=== PATIENT | male | born 1930 | race Caucasian/White ===

== ENCOUNTER 2017-06-07 09:42 | Emergency (ER) | payer OTHER ==
[~2017-06-07] VITALS: Ht 172.7 cm; Wt 80.0 kg
[~2017-06-07 09:42] MED LIST: ALBU18HF INHALATION; GLIP-95; HYDR-3498 PO; METF500T4
[2017-06-07 09:51] VITALS: Ht 172.7 cm; Wt 80.0 kg
[2017-06-07 10:58] LABS: ALBUMIN 3.9 g/dl (3.3-4.9); ALBUMIN/GLOBULIN RATIO 1.5; BILIRUBIN,INDIRECT 0.2 mg/dl (0-1.1); BILIRUBIN,TOTAL 0.2 mg/dl (0.2-1.3); CALCIUM 8.9 mg/dl (8.4-10.2); CREATININE 1.38 mg/dl (0.61-1.24); TOTAL PROTEIN 6.5 g/dl (6.1-8.1)
[2017-06-07] MEDS ORDERED: NA POLYST SULFON 15 GM/60 ML BTL PO STA (11:32)
[2017-06-07] MEDS ORDERED: NA BICARBONATE 8.4% 50 ML SYG IV STA (11:32)
[2017-06-07] MEDS ORDERED: INSULIN REGULAR, HUMAN 100 UNIT/1 ML 3ML VIAL IV STA (11:32)
[2017-06-07] MEDS ORDERED: SODI15OR8 PO (11:38)
--- NOTE | 2017-06-07 11:40 | ERD ---
ER Documentation Chief Complaint Date/Time DATE: 06/07/17 TIME: 11:39 Chief Complaint Patient sent from MD for evaluation abnormal labs HPI This is an 86-year-old male who is sent here by his doctor for abnormal labs. The patient had potassium is 6.3 and creatinine 2.0. Patient is completely asymptomatic and is here because his doctor sent him here for a redraw of his potassium and renal function. He has no other symptoms of complaints of chest pain headache shortness of breath dizziness weakness ROS All systems reviewed and are negative except as per history of present illness. Medications Home Meds Active Scripts Sodium Polystyrene Sulfonate* (Kayexalate*) 15 Gm/60 Ml Susp, 30 GM PO each day for 5 Days, ML Prov:MARTHA FARMER DO 06/07/17 Albuterol Sulfate* (Ventolin HFA*) 18 Gm Hfa.aer.ad, 2 PUFF INHALATION Q6H, #1 INHALER 0 Refills Prov:BEKAH BROOKS PA-C 03/06/16 Hydrocodone Bit-Acetaminophen* ([place]*) 5-325 Mg Tab, 1 TAB PO Q8 Y for PAIN, # 10 TAB 0 Refills Prov:BEKAH BROOKS PA-C 03/06/16 Reported Medications Glipizide* (Glipizide*) 10 Mg Tablet 10/12/09 Metformin Hcl* (Metformin Hcl*) 500 Mg Tablet 10/12/09 Allergies Allergies: Coded Allergies: No Known Allergies (Verified Allergy, Mild, 10/12/09) PMhx/Soc History of Surgery: No Anesthesia Reaction: No Hx Neurological Disorder: No Hx Respiratory Disorders: No Hx Cardiac Disorders: No Hx Psychiatric Problems: No Hx Miscellaneous Medical Probl: No Hx Alcohol Use: Yes Hx Substance Use: No Hx Tobacco Use: No Smoking Status: Never smoker FmHx Family History: No coronary disease Physical Exam Vitals Vital Signs Date Time Temp Pulse Resp B/P Pulse Ox O2 Delivery O2 Flow Rate FiO2 06/07/17 09:51 98.3 89 20 146/95 99 Physical Exam Const: Well-developed, well-nourished Head: Atraumatic, normocephalic Eyes: Normal Conjunctiva, PERRLA, EOMI, normal sclera, no nystagmus ENT: Normal External Ears, Nose and Mouth, moist mucus membranes. Neck: Full range of motion. No meningismus, no lymphadenopathy. Resp: Clear to auscultation bilaterally, no wheezing, rhonchi, rales Cardio: Regular rate and rhythm, no murmurs, S1 S2 present Abd: Soft, non tender x 4, non distended. Normal bowel sounds, no guarding or rebound, no pulsitile abdominal masses or bruits Skin: No petechiae or rashes, no ecchymosis , no maculopapular rash Back: No midline or flank tenderness Ext: No cyanosis, or edema, FROM x 4, normal inspection, neurovascularly intact x 4 Neur: Awake and alert, STR 5/5 x 4, sensation intact x 4, no focal findings, cerebellum intact Psych: Normal Mood and Affect Result Diagram: 06/07/17 1028 Results 24 hrs Laboratory Tests Test 06/07/17 10:28 Sodium Level 138mmol/L Potassium Level 6.0mmol/L Chloride Level 100mmol/L Carbon Dioxide Level 24mmol/L Anion Gap 20 Blood Urea Nitrogen 33mg/dl Creatinine 1.38mg/dl Glucose Level 304mg/dl Calcium Level 8.9mg/dl Total Bilirubin 0.2mg/dl Direct Bilirubin 0.00mg/dl Indirect Bilirubin 0.2mg/dl Aspartate Amino Transf (AST/SGOT) 13IU/L Alanine Aminotransferase (ALT/SGPT) 27IU/L Alkaline Phosphatase 53IU/L Total Protein 6.5g/dl Albumin 3.9g/dl Globulin 2.60g/dl Albumin/Globulin Ratio 1.50 Current Medications Medications (Trade) Dose Ordered Sig/Norma Route PRN Reason Start Time Stop Time Status Last Admin Dose Admin Sodium Polystyrene Sulfonate (Kayexalate) 30 gm ONCE STAT PO 06/07/17 11:32 06/07/17 11:37 DC Sodium Bicarbonate (Na Bicarb 8.4% Syg) 50 ml ONCE STAT IV 06/07/17 11:32 06/07/17 11:37 DC Insulin Human Regular (Humulin R) 10 unit ONCE STAT IV 06/07/17 11:32 06/07/17 11:37 DC Dextrose (D50w Syringe) ONCE PRN IV POC BLOOD GLUCOSE <250 MG/DL 06/07/17 12:00 Procedures/MDM The patient will be given the hyperkalemic cocktail here. Including Kayexalate. The patient is adamant he will not stay in the hospital for admission. He says this is because he has a sick at home.. I did tell him that hyperkalemia can result in cardiac arrest and . He said he knows and will not stay in the hospital because of his . I will discharge him home with 5 days of Kayexalate 30 g p.o. daily and told him to see his doctor on Saturday for redraw of potassium Departure Diagnosis: Primary Impression: Hyperkalemia Condition: Stable Patient Instructions: Hyperkalemia MATRHA FARMER DO Jun 07, 2017 11:40
[2017-06-07] MEDS ORDERED: DEXTROSE 50% 50 ML SYRINGE IV PRN (12:00)
[2017-06-07 12:34] VITALS: BP 126/71; PULSE 81; TEMP 98
== END 2017-06-07 12:35 | disposition home or self-care (01) ==
LOC: E/R 09:42
DX: E87.5 Hyperkalemia (principal); Z79.84 Long term (current) use of oral hypoglycemic drugs
CPT/HCPCS: 36415; 80053; 82962; 96374; 96375; 99284; J1815

== ENCOUNTER 2019-01-06 13:39 | Emergency (ER) | payer OTHER ==
[~2019-01-06] VITALS: Ht 170.2 cm; Wt 70.3 kg
[~2019-01-06 13:39] MED LIST changes: -GLIP-95; +GLIP10TA14; +METF500T24; -METF500T4; +SODI15OR8 PO
[2019-01-06 13:45] VITALS: Ht 170.2 cm; Wt 70.3 kg
--- NOTE | 2019-01-06 13:57 | ERD ---
ER Documentation Chief Complaint Chief Complaint Sent by PMD for lab work/evaluation HPI The patient is a 88-year-old male, presenting to the ER because of abnormal lab from his doctor Dr Owens's office of high potassium of 6.1, high BUN 39, high creatinine 1.6 from the lab that he had yesterday, UA show positive nitrite. He denies fever, chills, neck pain, chest pain, abdominal pain, vomiting, complains of dysuria. He does not smoke or drink Past medical history: Diabetes mellitus, metastatic prostate cancer, dementia, anemia Past surgical history: None ROS All systems reviewed and are negative except as per history of present illness. Medications Home Meds Active Scripts Cephalexin* (Keflex*) 500 Mg Capsule, 500 MG PO BID, #20 CAP Prov:LINDA LAWTON MD 01/06/19 Reported Medications Donepezil* (Donepezil*) 5 Mg Tablet, 5 MG PO DAILY, #30 TAB 01/06/19 Simvastatin* (Zocor*) 10 Mg Tablet, 10 MG PO QHS, #30 TAB 01/06/19 Pioglitazone Hcl* (Actos*) 30 Mg Tablet, 30 MG PO DAILY, #30 TAB 01/06/19 Lisinopril* (Lisinopril*) 20 Mg Tablet, 20 MG PO DAILY, #30 TAB 01/06/19 Glimepiride* (Glimepiride*) 4 Mg Tablet, 4 MG PO WITH BREAKFAST DINNE, TAB 01/06/19 Discontinued Reported Medications Glipizide* (Glipizide*) 10 Mg Tablet 10/12/09 Metformin Hcl* (Metformin Hcl*) 500 Mg Tablet 10/12/09 Discontinued Scripts Sodium Polystyrene Sulfonate* (Kayexalate*) 15 Gm/60 Ml Susp, 30 GM PO each day for 5 Days, ML Prov:MARTHA FARMER DO 06/07/17 Albuterol Sulfate* (Ventolin HFA*) 18 Gm Hfa.aer.ad, 2 PUFF INHALATION Q6H, #1 INHALER 0 Refills Prov:BEKAH BROOKS PA-C 03/06/16 Hydrocodone Bit-Acetaminophen* ([place]*) 5-325 Mg Tab, 1 TAB PO Q8 PRN for PAIN, #10 TAB 0 Refills Prov:BEKAH BROKOS PA-C 03/06/16 Allergies Allergies: Coded Allergies: No Known Allergies (Verified Allergy, Mild, 01/06/19) PMhx/Soc History of Surgery: No Anesthesia Reaction: No Hx Neurological Disorder: No Hx Respiratory Disorders: No Hx Cardiac Disorders: No Hx Psychiatric Problems: No Hx Miscellaneous Medical Probl: No Hx Alcohol Use: Yes Hx Substance Use: No Hx Tobacco Use: No Physical Exam Vitals Vital Signs Date Temp Pulse Resp B/P (MAP) Pulse Ox O2 O2 Flow FiO2 Time Delivery Rate 01/06/19 98.8 88 19 132/66 97 Room Air 16:35 (88) 01/06/19 Nasal 2 14:21 Cannula 01/06/19 98.2 95 18 135/63 97 13:45 (87) Physical Exam Const: No acute distress. Head: Atraumatic. Eyes: Normal Conjunctiva. ENT: Normal External Ears, Nose and Mouth. Neck: Full range of motion. No meningismus. Resp: Clear to auscultation bilaterally. Cardio: Regular rate and rhythm. Abd: Soft, non distended, normal bowel sounds, non tender. Skin: No petechiae or rashes. Back: No midline or flank tenderness. Ext: No cyanosis, or edema. Neur: Awake and alert. No focal deficit Psych: Agitated. Result Diagram: 01/06/19 1417 01/06/19 1417 Results 24 hrs Laboratory Tests Test 01/06/19 14:17 01/06/19 14:19 01/06/19 14:39 01/06/19 14:41 White Blood Count 3.9 10^3/ul Red Blood Count 2.48 10^6/ul Hemoglobin 7.4 g/dl Hematocrit 23.3 % Mean Corpuscular 94.0 fl Volume Mean Corpuscular 29.8 pg Hemoglobin Mean Corpuscular 31.8 g/dl Hemoglobin Concent Red Cell 14.3 % Distribution Width Platelet Count 101 10^3/UL Mean Platelet 11.2 fl Volume Immature 0.500 % Granulocytes % Neutrophils % 54.7 % Lymphocytes % 29.8 % Monocytes % 13.4 % Eosinophils % 1.3 % Basophils % 0.3 % Nucleated Red 0.0 /100WBC Blood Cells % Immature 0.020 10^3/ul Granulocytes # Neutrophils # 2.1 10^3/ul Lymphocytes # 1.2 10^3/ul Monocytes # 0.5 10^3/ul Eosinophils # 0.1 10^3/ul Basophils # 0.0 10^3/ul Nucleated Red 0.0 10^3/ul Blood Cells # Prothrombin Time 13.8 Sec Prothrombin Time 1.1 Ratio INR International 1.05 Normalized Ratio Activated 30.[address] Time Sodium Level 135 mmol/L Potassium Level 5.2 mmol/L Chloride Level 98 mmol/L Carbon Dioxide 24 mmol/L Level Anion Gap 13 Blood Urea 41 mg/dl Nitrogen Creatinine 1.80 mg/dl Est Glomerular mL/min Filtrat Rate mL/min Glucose Level 272 mg/dl Calcium Level 9.0 mg/dl Total Bilirubin 0.4 mg/dl Direct Bilirubin 0.00 mg/dl Indirect Bilirubin 0.4 mg/dl Aspartate Amino 19 IU/L Transf (AST/SGOT) Alanine 11 IU/L Aminotransferase ( ALT/SGPT) Alkaline 541 IU/L Phosphatase Troponin I < 0.012 ng/ml Total Protein 6.6 g/dl Albumin 4.1 g/dl Globulin 2.50 g/dl Albumin/Globulin 1.64 Ratio POC Venous Lactate 1.6 mmol/L Bedside Urine pH 5.0 (LAB) Bedside Urine Trace Protein (LAB) Bedside Urine Negative Glucose (UA) Bedside Urine Negative Ketones (LAB) Bedside Urine Trace-lysed Blood Bedside Urine Positive Nitrite (LAB) Bedside Urine Negative Leukocyte Esterase (L Bedside Glucose 271 mg/dL Test 01/06/19 15:35 Urine Color ELIZABET Urine Clarity SLIGHTLY CLOUDY Urine pH 5.0 Urine Specific 1.016 [place] Urine Ketones NEGATIVE mg/dL Urine Nitrite NEGATIVE mg/dL Urine Bilirubin NEGATIVE mg/dL Urine Urobilinogen NEGATIVE mg/dL Urine Leukocyte NEGATIVE Isra/ul Esterase Urine Microscopic 4 /HPF RBC Urine Microscopic 1 /HPF WBC Urine Bacteria FEW /HPF Urine Mucus FEW /HPF Urine Hemoglobin NEGATIVE mg/dL Urine Glucose NEGATIVE mg/dL Urine Total NEGATIVE mg/dl Protein Current Medications Medications Dose Sig/Norma Start Time Status Last (Trade) Ordered Route PRN Stop Time Admin Dose Reason Admin Piperacillin 50 ml @ ONCE ONCE 01/06/19 DC 01/06/19 Sod/ 100 mls/hr IVPB 16:30 16:16 Tazobactam 01/06/19 16:59 Sod Procedures/MDM [place] [id number] Radiology Main Line: [phone] DIAGNOSTIC IMAGING REPORT Patient: RONALD NAPIER : 1930 Age: 88 Sex: M MR #: [id number] DOS: 01/06/19 1401 Ordering MD: LINDA LAWTON MD Location: E/R Room/Bed: PROCEDURE: XR Chest. CLINICAL INDICATION: chest pain TECHNIQUE: Single frontal view of the chest was obtained COMPARISON: CR CHEST 03/06/2016 FINDINGS: The heart and mediastinum are within normal limits. The lungs are clear. There is no pleural effusion or pneumothorax. RPTAT: AA IMPRESSION: No acute disease. .Dick Núñez MD, Date Time Electronically viewed and signed by .Dick Núñez MD, MD on 01/06/2019 14:29 .S/ CC: LINDA LAWTON MD [phone] EKG: Read by emergency physician Rate/Rhythm: Normal Sinus Rhythm 81beats/min QRS, ST, T-waves: No ST elevation, no T inversion Impression: Normal EKG MEDICAL MAKING DECISION: The patient is a 88-year-old male, presenting with acute cystitis, acute on chronic kidney disease, pancytopenia, acute hyperkalemia. He was treated with Zosyn IV for acute cystitis. I have admitted the patient however he declined to be admitted The patient signed out AGAINST MEDICAL ADVICE. Risks, benefits, alternatives were explained to the patient. Risks include but not limited to and permanent disability Consultation: I discussed the patient with his doctor Dr. Maldonado, who was made aware of the lab, the treatment and the patient signing out AGAINST MEDICAL ADVICE The differential diagnoses considered include but are not limited to UTI, pneumonia, pyelonephritis, sepsis, GI bleed Departure Diagnosis: Primary Impression: UTI (urinary tract infection) Additional Impressions: Acute kidney injury superimposed on chronic kidney disease Pancytopenia Hyperkalemia Abnormal LFTs Condition: Serious Comments He was given prescription for Keflex. he is asked to see Dr Owens immediately The patient signed out AGAINST MEDICAL ADVICE. Risks, benefits, alternatives were explained to the patient. Risks include but not limited to and permanent disability Disclaimer: Inadvertent spelling and grammatical errors are likely due to EHR/dictation software use and do not reflect on the overall quality of patient care. Also, please note that the electronic time recorded on this note does not necessarily reflect the actual time of the patient encounter. LINDA LAWTON MD Jan 06, 2019 13:57
[2019-01-06] MEDS ORDERED: SIMV10TA PO (15:28)
[2019-01-06] MEDS ORDERED: PIOG30TA12 PO (15:28)
[2019-01-06] MEDS ORDERED: GLIM4TAB PO (15:28)
[2019-01-06] MEDS ORDERED: LISI-471 PO (15:28)
[2019-01-06] MEDS ORDERED: DONE5TAB7 PO (15:29)
[2019-01-06] MEDS ORDERED: CEPH-443 PO (16:18)
[2019-01-06] MEDS ORDERED: PIPER-TAZO 2.25 GM (PMX) 50 ML IVPB ONE (16:30)
[2019-01-06 16:35] VITALS: BP 132/66; PULSE 88; RESP 19
== END 2019-01-06 16:37 | disposition left against medical advice (07) ==
LOC: E/R 13:39
DX: N39.0 Urinary tract infection, site not specified (principal); E11.9 Type 2 diabetes mellitus without complications; D61.818 Other pancytopenia; E87.5 Hyperkalemia; N17.9 Acute kidney failure, unspecified
CPT/HCPCS: 36415; 71045; 80053; 81001; 82962; 83605; 84484; 85025; 85610; 85730; 87040; 87086; 93005; 96374; 99285; J2543; 81003

== ENCOUNTER 2019-01-24 08:33 | Observation (INO) | payer OTHER ==
[~2019-01-24] VITALS: Ht 167.6 cm; Wt 70.0 kg
[~2019-01-24 08:33] MED LIST changes: -ALBU18HF INHALATION; +CEPH-443 PO; +DONE5TAB7 PO; +GLIM4TAB PO; -GLIP10TA14; -HYDR-3498 PO; +LISI-471 PO; -METF500T24; +PIOG30TA12 PO; +SIMV10TA PO; -SODI15OR8 PO
[2019-01-24] MEDS ORDERED: SOD CHLORIDE 0.9% 1,000 ML IV STA ×2 (08:55→10:05)
[2019-01-24] MEDS ORDERED: GLIM4TAB PO (10:36)
[2019-01-24] MEDS ORDERED: ZOLP10TA5 PO (10:36)
[2019-01-24] MEDS ORDERED: HYDR-4011 PO (10:37)
[2019-01-24] MEDS ORDERED: ONDANSETRON 4 MG INJ IV PRN (12:00)
[2019-01-24] MEDS ORDERED: ACETAMINOPHEN 325 MG TAB PO PRN (12:00)
[2019-01-24] MEDS ORDERED: IODIXANOL LOCM 100 ML BTL ONE (12:10)
[2019-01-24] MEDS ORDERED: SOD CHLORIDE 0.9% 100 ML ONE (12:11)
[2019-01-24] MEDS ORDERED: ZOLPIDEM 5 MG TAB PO PRN (12:30)
--- NOTE | 2019-01-24 12:56 | ERD ---
ER Documentation Chief Complaint Chief Complaint pt is adrien family sent over for blood transfusion hgb 7.1 HPI This is an 88-year-old male with a past medical history of metastatic prostate carcinoma with a PSA level of around 400. The patient community service specialist oncologist is Dr. Néstor Girard. The patient is on Lupron. The patient has known history of chronic renal failure not on dialysis. The patient's shift nurse manager is Dr. Rosa Jose. He was recently seen and evaluated by Dr. Rosa Jose for an elevated creatinine. He was instructed to stop lisinopril. During that visit he also complained of lightheadedness and dizziness and generalized weakness. Request laboratory work indicated the patient was anemic with a hemoglobin of 7.1. The patient has also been having frequent falls according to his . Roughly 1 week ago the patient had a ground-level mechanical fall landing on his left buttocks. He did not hit his head or lose consciousness. Since that time he has been complaining of severe pain in the left buttocks and lower abdomen. He has had no hemoptysis no hematemesis no melanotic stools. He denies any short ness of breath at rest or exertion. He denies any chest pain. He has no changes in vision. ROS All systems reviewed and are negative except as per history of present illness. Medications Home Meds Reported Medications Zolpidem Tartrate* (Zolpidem Tartrate*) 10 Mg Tablet, 10 MG PO QHS PRN for INSOMNIA, #30 TAB 01/24/19 Glimepiride* (Glimepiride*) 4 Mg Tablet, 4 MG PO WITH BREAKFAST DINNE, TAB 01/24/19 Discontinued Reported Medications Hydrocodone/Acetaminophen ([place] 5-325 Tablet) 1 Each Tablet, 1 EACH PO Q6H, TAB 01/24/19 Donepezil* (Donepezil*) 5 Mg Tablet, 5 MG PO DAILY, #30 TAB 01/06/19 Simvastatin* (Zocor*) 10 Mg Tablet, 10 MG PO QHS, #30 TAB 01/06/19 Pioglitazone Hcl* (Actos*) 30 Mg Tablet, 30 MG PO DAILY, #30 TAB 01/06/19 Lisinopril* (Lisinopril*) 20 Mg Tablet, 20 MG PO DAILY, #30 TAB 01/06/19 Glimepiride* (Glimepiride*) 4 Mg Tablet, 4 MG PO WITH BREAKFAST DINNE, TAB 01/06/19 Discontinued Scripts Cephalexin* (Keflex*) 500 Mg Capsule, 500 MG PO BID, #20 CAP Prov:LINDA LAWTON MD 01/06/19 Allergies Allergies: Coded Allergies: No Known Allergies (Verified Allergy, Mild, 01/24/19) PMhx/Soc History of Surgery: No Anesthesia Reaction: No Hx Neurological Disorder: No Hx Respiratory Disorders: No Hx Cardiac Disorders: Yes (diabetes mellitus) Hx Psychiatric Problems: No Hx Miscellaneous Medical Probl: Yes (urinary tract infections; kidney problems) Hx Alcohol Use: Yes Hx Substance Use: No Hx Tobacco Use: No Smoking Status: Never smoker Physical Exam Vitals Vital Signs Date Temp Pulse Resp B/P (MAP) Pulse Ox O2 O2 Flow FiO2 Time Delivery Rate 01/24/19 90 18 125/59 100 Room Air 11:26 (81) 01/24/19 98.3 94 18 128/61 94 08:35 (83) Physical Exam Constitutional:Well-developed. Well-nourished. HEENT:Normocephalic. Atraumatic.Pupils were equal round reactive to light. Moist mucous membranes.No tonsillar exudates. Conjunctival pallor Neck: No nuchal rigidity. No lymphadenopathy. No posterior cervical spine tenderness or step-offs. Respiratory: Not using accessory muscles of respiration.Lungs were clear to auscultation bilaterally. No rhonchi. No rales. No wheezing. Cardiovascular: Regular rate regular rhythm.No murmurs. No rubs were appreciated.S1, S2 normal. Distal pulses are palpable 2+ bilaterally. GI: Abdomen was soft. Nontender. Non Distended. No pulsatile abdominal masses or bruits. No rebound. No guarding. Bowel sounds were present and normal. Muscle skeletal: Full range of motion of both the upper and lower extremities bilaterally.Normal muscle tone.No assymetrical calf tenderness or swelling. Tenderness of the left anterior superior iliac spine but lower extremities are of equal length and symmetrical no internal/external rotation. RECTAL: Normal sphincter tone. No gross blood. Fecal occult blood test negative. Skin: Diffuse pallor. No petechia, no purpura. No lesions on the palms or the soles of the feet. No maculopapular rash. Significant ecchymosis over the left flank and left buttocks. NEURO: Patient was alert, awake, orientated x3.No facial droop. Gait observed but patient ambulates with a slow shuffling gait.Speech had regular rate and rhy thm. No focal neurological deficits. Result Diagram: 01/24/1930 01/24/19 0930 Results 24 hrs Laboratory Tests Test 01/24/19 09:30 White Blood Count 5.4 10^3/ul Red Blood Count 2.34 10^6/ul Hemoglobin 7.0 g/dl Hematocrit 22.6 % Mean Corpuscular Volume 96.6 fl Mean Corpuscular Hemoglobin 29.9 pg Mean Corpuscular Hemoglobin Concent 31.0 g/dl Red Cell Distribution Width 16.4 % Platelet Count 114 10^3/UL Mean Platelet Volume 12.6 fl Immature Granulocytes % 1.500 % Neutrophils % 65.8 % Lymphocytes % 16.0 % Monocytes % 14.1 % Eosinophils % 2.4 % Basophils % 0.2 % Nucleated Red Blood Cells % 0.0 /100WBC Immature Granulocytes # 0.080 10^3/ul Neutrophils # 3.5 10^3/ul Lymphocytes # 0.9 10^3/ul Monocytes # 0.8 10^3/ul Eosinophils # 0.1 10^3/ul Basophils # 0.0 10^3/ul Nucleated Red Blood Cells # 0.0 10^3/ul Prothrombin Time 14.4 Sec Prothrombin Time Ratio 1.1 INR International Normalized Ratio 1.11 Activated Partial Thromboplast Time 30.5 Sec Sodium Level 134 mmol/L Potassium Level 5.3 mmol/L Chloride Level 102 mmol/L Carbon Dioxide Level 22 mmol/L Anion Gap 10 Blood Urea Nitrogen 44 mg/dl Creatinine 1.63 mg/dl Est Glomerular Filtrat Rate mL/min mL/min Glucose Level 287 mg/dl Calcium Level 9.1 mg/dl Iron Level 72 ug/dl Total Iron Binding Capacity 375 ug/dl Percent Iron Saturation 19 % SAT Ferritin 176.0 ng/ml Total Bilirubin 0.6 mg/dl Direct Bilirubin 0.00 mg/dl Indirect Bilirubin 0.6 mg/dl Aspartate Amino Transf (AST/SGOT) 13 IU/L Alanine Aminotransferase (ALT/SGPT) 10 IU/L Alkaline Phosphatase 816 IU/L Lactate Dehydrogenase 438 IU/L Total Protein 6.5 g/dl Albumin 3.9 g/dl Globulin 2.60 g/dl Albumin/Globulin Ratio 1.50 Current Medications Medications Dose Sig/Norma Start Time Status Last (Trade) Ordered Route PRN Stop Time Admin Dose Reason Admin Sodium 1,000 ml @ Q1H STAT 01/24/19 DC 01/24/19 Chloride 1,000 mls/hr IV 08:55 09:18 01/24/19 09:54 Sodium 1,000 ml @ Q1H STAT 01/24/19 UNV Chloride 1,000 mls/hr IV 10:05 01/24/19 11:04 Ondansetron 4 mg BRIDGE ORDER 01/24/19 HCl (Zofran PRN IV 12:00 Inj) NAUSEA/VOMITI 01/25/19 11:59 NG 650 mg ER BRIDGE 01/24/19 Acetaminophen PRN PO 12:00 (Tylenol .MILD PAIN 01/25/19 11:59 Tab) 1-3 OR TEMP Procedures/MDM The patient presented to the emergency department with generalized weakness and was immediately placed on a residential monitor continuous pulse oximetry and IV access was examined by nursing staff. The patient was anemic with hemoglobin of 7.0. There is no thrombus cytopenia or coagulopathy. The patient when reviewing previous medical records roughly 2 weeks ago did have a hemoglobin that was 7.4. However prior to that the patient's hemoglobin was normal. This could be result of the patient's known prostatic carcinoma however I obtained an anemia panel for further evaluation into the cause of the patient's normocytic anemia. Given that the patient was symptomatic he will receive a blood transfus ion. He was typed and crossed and given 2 units of packed red blood cells in the emergency department. 12 Lead EKG tracing ordered and reviewed by myself showed: Normal sinus rhythm of 65 bpm and no arrhythmia. VA interval normal. QRS duration normal. No ST segment elevation No ST segment depression. No changes consistent with acute ischemia. The patient was hyperglycemic without ketosis. Patient was given IV fluids The patient did have an elevation in his creatinine. However given that the patient had reproducible abdominal pain with ecchymosis over the flank and buttock region with anemia I did feel is necessary to obtain a CT scan of the abdomen to rule out for intra-abdominal hemorrhage. Risks and benefits were given to the patient receiving IV contrast and the family was in agreement to undergo the CT scan. This was reviewed by the radiologist myself and indicate the following: Acute left inferior pubic ramus fracture without hemorrhage. No evidence of visceral injury, intraperitoneal or retroperitoneal hemorrhage. Diffuse blastic metastases compatible with prostate cancer. Vascular calcifications. Left renal cyst. No further workup required. Right inguinal hernia containing a normal appendix. The patient did have an acute left inferior pubic rami fracture that could be a result of the patient's difficulty with ambulation. However there is no signs of intraperitoneal or retroperitoneal hemorrhage. I spoke with Dr. Cheng who kindly stated he will admit the patient for observation. I do feel the patient was stable to go to the medical surgical floor. He will be admitted to make sure the patient has no adverse reactions to the transfusion. Critical Care: Time: 80 minutes Treatments/Evaluations: Close monitoring and treatment of unstable vital signs, cardiorespiratory, and neurologic status, while maintaining tight balance of fluid, respiratory, and cardiac interventions. Time does not include performing any of the above billable procedures. Departure Diagnosis: Primary Impression: Anemia Anemia type: unspecified type Qualified Codes: D64.9 - Anemia, unspecified Additional Impressions: Pubic ramus fracture Encounter type: initial encounter Fracture type: closed Laterality: left Qualified Codes: S32.592A - Other specified fracture of left pubis, initial encounter for closed fracture Hyperglycemia without ketosis Traumatic ecchymosis of flank Encounter type: initial encounter Qualified Codes: S30.1XXA - Contusion of abdominal wall, initial encounter Condition: Serious MIRZA SHARIF MD Jan 24, 2019 12:56
[2019-01-24] MEDS ORDERED: DEXTROSE 50% 50 ML SYRINGE IV PRN ×2 (13:00)
[2019-01-24] MEDS ORDERED: GLUCOSE GEL 15 GRAM TUBE PO PRN ×2 (13:00)
[2019-01-24] MEDS ORDERED: GLUCOSE GEL 15 GRAM TUBE BUCCAL PRN (13:00)
[2019-01-24] MEDS ORDERED: GLUCAGON 1 MG INJ IM PRN (13:00)
[2019-01-24 13:07] VITALS: BP 121/57; PULSE 101; RESP 18
[2019-01-24 13:23] VITALS: Ht 167.6 cm; Wt 70.0 kg
--- NOTE | 2019-01-24 17:41 | PDOCDIS ---
Discharge Instructions CONDITION Icyxd2Ur Patient Condition: Lckmu0t Good HOME CARE INSTRUCTIONS: [id number] Diet Instructions: [id number] Special Diet: Ghztz8y diabetic ACTIVITY: [id number] Activity Restrictions: [id number] Rest between Activity FOLLOW UP/APPOINTMENTS Follow-up Plan pcp 1 week KATHIA ORR MD Jan 24, 2019 17:41
[2019-01-24] MEDS ORDERED: GLIMEPIRIDE 4 MG TAB PO SCH (17:55)
--- NOTE | 2019-01-24 19:08 | HP ---
DATE OF ADMISSION: 01/24/2019 REASON FOR VISIT: Anemia. HISTORY OF PRESENT ILLNESS: An 88-year-old male with metastatic prostate cancer. He was referred to emergency room by his pumping station engineer Dr. Young. The patient had a recent fall at home and develo ped bruises. Lab drawn as outpatient showed hemoglobin of 7.1. REVIEW OF SYSTEMS: The patient denies hematemesis. No bright red blood per rectum. No melena. Hem oglobin was found to be 7 with normal iron studies. Serum creatinine was 1.6 which is close to his b aseline. According to his , the patient has been confused at times. PAST MEDICAL HISTORY: 1. Metastatic prostate cancer. 2. Type 2 diabetes mellitus. 3. Stage III chronic kidney disease. MEDICATIONS PRIOR TO ADMISSION: 1. [place]. 2. Ambien. 3. Glimepiride. PHYSICAL EXAMINATION: GENERAL: Well-developed, well-nourished elderly male who is alert. He is found to confabulating. VITAL SIGNS: Stable. He is afebrile. HEENT: Extraocular muscles intact. Pupils equal and reactive to light bilaterally. Sclerae are ani cteric. Oropharynx is clear and moist. NECK: Supple. No JVD, no carotid bruits. LUNGS: Mild rhonchi. CARDIAC: Regular rate and rhythm. ABDOMEN: Soft, nontender, nondistended, normoactive bowel sounds. EXTREMITIES: Diffuse lesions were noted. No edema. NEUROLOGICAL: Grossly nonfocal. ASSESSMENT: 1. An 88-year-old male with anemia. Hemoglobin was found to be 7 with normal iron profile. This is more likely due to underlying metastatic cancer. 2. Metastatic prostate cancer. 3. Type 2 diabetes mellitus. 4. Stage 3 chronic kidney disease. 5. Alzheimer dementia. PLAN: 1. Place in med surg observation. 2. Transfuse 2 units of packed RBC. 3. Resume selective home medications. 4. Discussed code status. Dictated By: KATHIA PEREZ/BARBARA Conf#: [id number] DID#: [id number]
--- NOTE | 2019-01-25 10:07 | DS ---
DATE OF ADMISSION: 01/24/2019 DATE OF DISCHARGE: 01/24/2019 DISCHARGE DIAGNOSES: 1. Symptomatic anemia, status post transfusion with 2 units of packed RBC. 2. Metastatic prostate cancer. 3. Type 2 diabetes mellitus. 4. Alzheimer's dementia. HOSPITAL COURSE: An 88-year-old male with known history of metastatic prostate cancer, was referred to emergency room for abnormal labs. The patient was found to have a hemoglobin of 7. Iron studies were within normal limits. The patient denied any hematemesis, bright red blood per rectum or melena . He received 2 units of packed RBC. The patient was discharged home following transfusion. He was in a stable condition. The patient was asked to follow up with his PCP and oncologist as outpatient . Dictated By: KATHIA PEREZ/BARBARA Conf#: [id number] DID#: [id number] CC: KATHIA ORR MD;*EndCC*
== END 2019-01-24 19:25 | disposition home or self-care (01) ==
LOC: E/R 08:33 → MS1 12:01
PROVIDERS: ADMIT Internal Medicine; ATTEND Internal Medicine
DX: C79.82 Secondary malignant neoplasm of genital organs (principal); D63.0 Anemia in neoplastic disease; E11.9 Type 2 diabetes mellitus without complications; I12.9 Hypertensive chronic kidney disease with stage 1 through stage 4 chronic kidney disease, or unspecified chronic kidney disease; N18.3 Chronic kidney disease, stage 3 (moderate); G30.9 Alzheimer's disease, unspecified; F02.80 Dementia in other diseases classified elsewhere, unspecified severity, without behavioral disturbance, psychotic disturbance, mood disturbance, and anxiety
CPT/HCPCS: 36430; 71045; 74177; 80053; 81003; 82728; 83540; 83615; 84153; 84154; 84466; 85025; 85610; 85730; 86850; 86900; 86901; 86920; 87040; 93005; 99291; G0378; J7030; P9016; Q9967

== ENCOUNTER 2019-02-21 07:12 | Emergency (ER) | payer OTHER ==
[~2019-02-21] VITALS: Ht 175.3 cm; Wt 70.0 kg
[~2019-02-21 07:12] MED LIST changes: -CEPH-443 PO; -DONE5TAB7 PO; -LISI-471 PO; -PIOG30TA12 PO; -SIMV10TA PO; +ZOLP10TA5 PO
[2019-02-21 07:16] VITALS: Ht 175.3 cm; Wt 70.0 kg
[2019-02-21] MEDS ORDERED: SOD CHLORIDE 0.9% 500 ML IV STA (08:14)
--- NOTE | 2019-02-21 08:57 | ERD ---
ER Documentation Chief Complaint Chief Complaint SENT BY PMD FOR HIGH BLOOD GLUCOSE HPI 88-year-old man here for evaluation of hyperglycemia, was at the bedside states his blood sugar was drawn about 3 days ago and they got a call yesterday stating that he had to go to the emergency department because the blood sugar was in the 500s. states for the last couple weeks he has been drinking Ensure 3 times daily, which contains mostly glucose. She also admits he did drink an Ensure prior to lab draw on . He denies chest pain or shortness of breath, no dysuria, no fevers or chills, no vomiting or diarrhea, no blood per rectum or melena. ROS All systems reviewed and are negative except as per history of present illness. Medications Home Meds Reported Medications Simvastatin* (Zocor*) 20 Mg Tablet, 20 MG PO QHS, #30 TAB 02/21/19 Furosemide* (Furosemide*) 20 Mg Tablet, 20 MG PO DAILY, #60 TAB 02/21/19 Donepezil* (Donepezil*) 5 Mg Tablet, 5 MG PO DAILY, #30 TAB 02/21/19 Amlodipine Besylate* (Amlodipine Besylate*) 2.5 Mg Tablet, 2.5 MG PO DAILY, #30 TAB 02/21/19 Potassium Chloride* (Potassium Chloride*) 20 Meq Tablet.er, 20 MEQ PO DAILY, TAB.SA 02/21/19 Hydrochlorothiazide* (Hydrochlorothiazide*) 25 Mg Tab, 25 MG PO DAILY, #30 TAB 02/21/19 Linagliptin (TRADJENTA) 5 Mg Tablet, 5 MG PO DAILY, TAB 02/21/19 Glimepiride* (Glimepiride*) 4 Mg Tablet, 4 MG PO WITH BREAKFAST DINNE, TAB 01/24/19 Discontinued Reported Medications Zolpidem Tartrate* (Zolpidem Tartrate*) 10 Mg Tablet, 10 MG PO QHS PRN for INSOMNIA, #30 TAB 01/24/19 Allergies Allergies: Coded Allergies: No Known Allergies (Verified Allergy, Mild, 02/21/19) PMhx/Soc Hypertension, metastatic prostate carcinoma, diabetes mellitus, chronic renal insufficiency not on hemodialysis, dementia History of Surgery: Yes (right arm fracture surgery, ) Anesthesia Reaction: No Hx Neurological Disorder: No Hx Respiratory Disorders: No Hx Cardiac Disorders: No Hx Psychiatric Problems: No Hx Miscellaneous Medical Probl: No Hx Alcohol Use: Yes Hx Substance Use: No Hx Tobacco Use: No Smoking Status: Never smoker FmHx Family History: diabetes Physical Exam Vitals Vital Signs Date Temp Pulse Resp B/P (MAP) Pulse Ox O2 O2 Flow FiO2 Time Delivery Rate 02/21/19 88 18 115/61 100 Room Air 10:12 (79) 02/21/19 98.2 90 18 123/56 98 07:16 (78) Physical Exam Const: No acute distress, afebrile, dry mucous membranes Head: Atraumatic Eyes: Normal Conjunctiva ENT: Normal External Ears, Nose and Mouth. Dry mucous membranes Neck: Full range of motion. No meningismus. Resp: Clear to auscultation bilaterally Cardio: Regular rate and rhythm, no murmurs Abd: Soft, non tender, non distended. Normal bowel sounds Skin: No petechiae or rashes Back: No midline or flank tenderness Ext: No cyanosis, or edema Neur: Awake and alert x3, no focal deficits or facial asymmetry, pupils equal round reactive to light Psych: Normal Mood and Affect Result Diagram: 02/21/1940 02/21/1940 Results 24 hrs Laboratory Tests Test 02/21/19 07:33 02/21/19 07:40 02/21/19 07:49 02/21/19 08:17 Bedside Glucose 66 mg/dL 85 mg/dL White Blood Count 4.3 10^3/ul Red Blood Count 3.56 10^6/ul Hemoglobin 10.7 g/dl Hematocrit 33.5 % Mean Corpuscular 94.1 fl Volume Mean Corpuscular 30.1 pg Hemoglobin Mean Corpuscular 31.9 g/dl Hemoglobin Concen t Red Cell 15.5 % Distribution Width Platelet Count 111 10^3/UL Mean Platelet 12.6 fl Volume Immature 0.500 % Granulocytes % Neutrophils % 68.8 % Lymphocytes % 16.6 % Monocytes % 11.7 % Eosinophils % 1.9 % Basophils % 0.5 % Nucleated Red 0.0 /100WBC Blood Cells % Immature 0.020 10^3/ul Granulocytes # Neutrophils # 2.9 10^3/ul Lymphocytes # 0.7 10^3/ul Monocytes # 0.5 10^3/ul Eosinophils # 0.1 10^3/ul Basophils # 0.0 10^3/ul Nucleated Red 0.0 10^3/ul Blood Cells # Sodium Level 139 mmol/L Potassium Level 4.8 mmol/L Chloride Level 99 mmol/L Carbon Dioxide 27 mmol/L Level Anion Gap 13 Blood Urea 36 mg/dl Nitrogen Creatinine 1.44 mg/dl Est Glomerular mL/min Filtrat Rate mL/min Glucose Level 116 mg/dl Calcium Level 9.7 mg/dl Total Bilirubin 0.5 mg/dl Direct Bilirubin 0.00 mg/dl Indirect 0.5 mg/dl Bilirubin Aspartate Amino 17 IU/L Transf (AST/SGOT) Alanine 10 IU/L Aminotransferase (ALT/SGPT) Alkaline 1038 IU/L Phosphatase Troponin I 0.017 ng/ml Total Protein 7.1 g/dl Albumin 4.4 g/dl Globulin 2.70 g/dl Albumin/Globulin 1.62 Ratio Lipase 61 U/L Urine Color STRAW Urine Clarity CLEAR Urine pH 7.0 Urine Specific 1.010 [place] Urine Ketones NEGATIVE mg/dL Urine Nitrite NEGATIVE mg/dL Urine Bilirubin NEGATIVE mg/dL Urine NEGATIVE mg/dL Urobilinogen Urine Leukocyte NEGATIVE Isra/ul Esterase Urine Hemoglobin NEGATIVE mg/dL Urine Glucose NEGATIVE mg/dL Urine Total NEGATIVE mg/dl Protein Current Medications Medications Dose Sig/Norma Start Time Status Last (Trade) Ordered Route PRN Stop Time Admin Dose Reason Admin Sodium 500 ml @ Q1H STAT 02/21/19 DC 02/21/19 Chloride 500 mls/hr IV 08:14 08:23 02/21/19 09:13 Procedures/MDM IV line was established patient was placed on cardiac cath tech rhythm strip revealed a sinus rhythm at about 80 bpm with upright P and T waves. Patient was afebrile Bilateral pulmonary atelectasis and small pleural effusions, no acute infiltrates, no pneumothorax. EKG performed, read by me revealed a normal sinus rhythm 89 bpm, normal axis, narrow QRS complex, anteroseptal T wave inversions and prolonged QT of 535 ms, no concerning ST elevations or depressions noted I administered 500 cc normal saline IV for dehydration BC was normal, electrolytes revealed dehydration, liver function tests unremarkable, troponin negative, urinalysis negative for infection. Alkaline phosphatase was elevated although patient has no abdominal complaints. I told him to follow-up with his PMD for continued outpatient management or return here if he has any other symptoms. Patient is asymptomatic now and is not hyperglycemic and has no signs or symptoms of diabetic ketoacidosis. He has been rehydrated and is tolerating p.o. here in the ER Differential diagnoses considered, included but not limited to acute coronary syndrome, pulmonary embolism, aortic dissection, abdominal aortic aneurysm, sepsis, stroke, meningitis, encephalitis, pneumonia, appendicitis, cholecyst itis, bowel obstruction, pyelonephritis, nephrolithiasis, cystitis, as well as metabolic, hematologic, and electrolyte abnormalities. As well as abscess, cellulitis, fractures, and dislocations. Patient feels much better at this time, and vital signs are normal, symptoms have improved. I did give strict instructions to return to the ED if symptoms continue or worsen, patient will otherwise follow-up with primary care physician. Patient understood instructions and agreed to plan. Disclaimer: Inadvertent spelling and grammatical errors are likely due to EHR/dictation software use and do not reflect on the overall quality of patient care. Also, please note that the electronic time recorded on this note does not necessarily reflect the actual time of the patient encounter. Departure Diagnosis: Primary Impression: Hyperglycemia Additional Impression: Dehydration Condition: Good CHAYA MADRIGAL MD Feb 21, 2019 08:57
[2019-02-21] MEDS ORDERED: LINA5TAB PO (10:02)
[2019-02-21] MEDS ORDERED: HYDR25TA6 PO (10:03)
[2019-02-21] MEDS ORDERED: POTA20TA96 PO (10:03)
[2019-02-21] MEDS ORDERED: AMLO2.5T78 PO (10:04)
[2019-02-21] MEDS ORDERED: DONE5TAB7 PO (10:04)
[2019-02-21] MEDS ORDERED: FURO20TA3 PO (10:05)
[2019-02-21] MEDS ORDERED: SIMV20TA PO (10:06)
[2019-02-21 10:12] VITALS: BP 115/61; PULSE 88; RESP 18
== END 2019-02-21 10:40 | disposition home or self-care (01) ==
LOC: E/R 07:12
DX: E11.65 Type 2 diabetes mellitus with hyperglycemia (principal); E86.0 Dehydration; I10 Essential (primary) hypertension; Z79.84 Long term (current) use of oral hypoglycemic drugs; Z85.46 Personal history of malignant neoplasm of prostate
CPT/HCPCS: 36415; 71045; 80053; 81003; 82962; 83690; 84484; 85025; 93005; 99285; J7040